=== PATIENT | female | born 1990 | race Asian ===

== ENCOUNTER 2024-12-25 07:46 | Emergency (ER) | payer SELFPAY ==
[2024-12-25 07:57] VITALS: BP 150/81; PULSE 97; RESP 14; TEMP 37.1; O2SAT 97; BMI 21.0
--- NOTE | 2024-12-25 08:32 | ED.PREGNANCY ---
HPI - General Date Seen: 12/25/24 Chief complaint: Vaginal Bleeding Stated complaint: poss miscarriage Time Seen by Provider: 12/25/24 07:59 Source: patient Mode of arrival: ambulatory Limitations: no limitations History of Present Illness HPI Narrative: Patient is a 34-year-old female who is A1 with a miscarriage being when she was 20 presenting to the emergency department for vaginal bleeding and left-sided pelvic cramping. She states she started having some bleeding yesterday and has noticed more today. She states she only notices the bleeding when she sits on the toilet. Has been using a pad but has had very minimal bleeding of the pad she states. Is also having left pelvic pain. This also started yesterday afternoon. She states for her previous miscarriage she had ultrasound at that time showing was a miscarriage in she was not having any other symptoms. Had a D&C at that time. Has not had an ultrasound yet she states that she was too early for the ultrasounds. Denies fevers, chills, chest pain, nausea, diarrhea, constipation, headache, lightheadedness, shortness of breath. No other concerns noted. Related Data Home Medications ?Medication ?Instructions ?Recorded ?Confirmed vit no.95-ferrous 1 tab PO DAILY 12/25/24 12/25/24 fumarate 28 mg-folic acid 800 mcg tablet () Allergies Allergy/AdvReac Type Severity Reaction Status Date / Time avocado AdvReac Severe Vomiting Verified 12/25/24 07:56 Review of Systems Status of ROS: Reports: 10 or more systems reviewed and unremarkable except as noted in History and below PFSH PFS Social History Smoking Status: Never smoker How often do you have a drink containing alcohol: never AUDIT-C Alcohol total score: 0 Non-prescribed substance use: denies use Exam Narrative: Exam Narrative: Const: Well-nourished, Well-developed, in mild distress Eyes: PERRL, no conjunctival injection, and symmetrical lids HENT: Atraumatic external nose and ears. Moist mucous membranes. Neck: Symmetric, trachea midline, No thyromegaly. CVS: RRR, No murmurs or gallops. Peripheral pulses 2+ and equal in all extremities RESP: Unlabored respiratory effort. Clear to auscultation bilaterally. GI: Left pelvic tenderness, Nondistended, No rebound or guarding. MSK:Extremities w/o deformity, Normal Active ROM Skin: Warm, Dry. No rashes or lesions. Neuro: Normal Muscle tone, No focal neurological deficits. Psych: Awake, Alert, & Oriented x3. Appropriate mood and affect. Const: Vital Signs, click to edit/add: Vital Signs - 24 hr 12/25/24 07:57 Temperature 98.8 F Pulse Rate [Pulse Oximeter] 97 Respiratory Rate 14 Blood Pressure [Ri ght Upper Arm] 150/81 H Pulse Oximetry 97 Oxygen Delivery Me thod Room Air Course Vital Signs Vital signs: Initial Vital Signs Temperature 98.8 F 12/25/24 07:57 Temperature Source Temporal Artery Scan 12/25/24 07:57 Pulse Rate 97 12/25/24 07:57 Respiratory Rate 14 12/25/24 07:57 Blood Pressure 150/81 H 12/25/24 07:57 Blood Pressure Mean 104 12/25/24 07:57 Blood Pressure Position Sitting 12/25/24 07:57 Pulse Oximetry 97 12/25/24 07:57 Oxygen Delivery Method Room Air 12/25/24 07:57 Vital Signs Temperature 98.8 F 12/25/24 07:57 Pulse Rate 97 12/25/24 07:57 Respiratory Rate 14 12/25/24 07:57 Blood Pressure 150/81 H 12/25/24 07:57 Pulse Oximetry 97 12/25/24 07:57 Oxygen Delivery Method Room Air 12/25/24 07:57 Temperature 98.8 F 12/25/24 07:57 Pulse Rate 97 12/25/24 07:57 Respiratory Rate 14 12/25/24 07:57 Blood Pressure 150/81 H 12/25/24 07:57 Pulse Oximetry 97 12/25/24 07:57 Oxygen Delivery Method Room Air 12/25/24 07:57 MDM - OB/Uterine Contractions MDM Narrative Medical decision making narrative: Patient is a 34-year-old female presenting to the emergency department for vaginal bleeding and left pelvic pain. My biggest concern at this time is an ectopic . Her vital signs are stable and she is not having any signs of hemodynamic instability. Will order an ultrasound along with the quantitative HCG, CBC, BMP. Other differential at this time includes UTI, diverticulitis, STD, PID, miscarriage. Beta hCG is 157. BMP and CBC showed no concerning abnormalities. Ultrasound shows likely signs of a miscarriage but we cannot definitively view the left ovary where her pain was. Due to this cannot definitively rule out ectopic . She does states she is currently pain-free after the Advil she took this morning. Her vital signs are stable. At this time I believe is most likely she is having a miscarriage but I did speak to the on-call OB, Dr. Cloud. I explained that I believe this is most likely a miscarriage but cannot definitively rule out ectopic . I believe that the patient is safe for follow-up but Friday and to the on-call Ob is agreeable with this. I informed the patient she needs to follow up Friday or return sooner if she develops worsening symptoms. She agrees with this plan. Lab Data Labs: Lab Results 12/25/24 Range/Units 08:28 WBC 10.35 (4.50-11.00) K/uL RBC 4.57 (4.00-5.20) m/uL Hgb 13.7 (12.0-16.0) gm/dL Hct 42.3 (33.0-51.0) % MCV 93 (80-100) fL MCH 30 (26-34) pg MCHC 32 (32-36) gm/dL RDW Coeff of [place] 12.7 (11.5-15.5) % Plt Count 265 (140-440) K/uL Neut % (Auto) 83.7 H (42.0-72.0) % Lymph % (Auto) 10.7 L (20-44) % [place] % (Auto) 5.3 (0.0-11.0) % Eos % (Auto) 0.1 (0.0-7.0) % Baso % (Auto) 0.1 (0.0-3.0) % Neut # (Auto) 8.70 H (1.7-7.0) K/uL Lymph # (Auto) 1.10 (0.90-2.90) K/uL [place] # (Auto) 0.50 (0.00-0.90) K/UL Eos # (Auto) 0.01 (0.00-0.50) K/uL Baso # (Auto) 0.01 (0.00-0.30) K/uL Abs Immat Gran (auto) 0.01 (0.00-0.30) K/uL Imm/Tot Granulo (auto) 0.1 % Sodium 140 (135-149) mmol/L Potassium 3.8 (3.6-5.1) mmol/L Chloride 104 (96-114) mmol/L Carbon Dioxide 24 (20-32) mmol/L Anion Gap 12 (7-15) mEq/L BUN 11 (5-24) mg/dL Creatinine 0.6 (0.5-1.5) mg/dL Estimated Creat Clear 117.76 Estimated GFR 120 ml/min Glucose 94 (60-115) mg/dL Calcium 8.9 (8.4-10.6) mg/dL HCG, Quant 157.74 mIU/mL Imaging Data Pelvic US: Attestation: I have reviewed the pertinent imaging results. Radiologist's impression: 1. No evidence of intrauterine . 2. There are blood products/clot in the lower uterine segment and cervix. The cervix appears dilated which can be confirmed with physical exam. This is suspicious for early loss in progress. 3. The right ovary appears normal. The left ovary was not well visualized due to patient discomfort during the exam. Ectopic can not be excluded. 4. Recommend clinical and imaging follow-up for confirmation. Dictated by Isamar Wu MD @ 12/25/2024 10:58:48 AM Discharge Plan Discharge Clinical Impression: Miscarriage Patient Disposition: Home, Self-Care Condition: Stable Instructions: Miscarriage (ED) Additional Instructions: I believe your symptoms are most likely from a miscarriage. At this time I cannot definitively started rule out ectopic low I would continue to do recommend return for re-evaluation if he develops worsening pain, bleeding, lightheadedness or any other concerning symptoms. I spoke to the on-call Ob/Gyne and she recommends that you follow-up on Friday with our [facility] for repeat lab work. When you call on Friday for an appointment make sure you inform them that you were told you need to follow-up on Friday for this lab work an appointment. Prescriptions: No Action PNV cmb#95-ferrous fumarate-FA [] 28 mg iron- 800 mcg tablet 1 tab PO DAILY Follow Up/Referrals: Provider,Not a Local [Primary Care Provider] - Stand Alone Forms: Billingstreetth Info Instructions
[2024-12-25 08:36] LABS: Basophils Absolute Auto 0.01 K/uL (0.00-0.30); Basophils Percent Auto 0.1 % (0.0-3.0); Eosinophils Absolute Auto 0.01 K/uL (0.00-0.50); Eosinophils Percent Auto 0.1 % (0.0-7.0); Hematocrit 42.3 % (33.0-51.0); Hemoglobin* 13.7 gm/dL (12.0-16.0); Immature Granulocytes Abs Auto 0.01 K/uL (0.00-0.30); Immature Granulocytes Pct Auto 0.1 %; Lymphocytes Percent Auto 10.7 % (20-44); Mean Corpuscular HGB Conc 32 gm/dL (32-36); Mean Corpuscular Hemoglobin 30 pg (26-34); Mean Corpuscular Volume 93 fL (80-100); Monocytes Percent Auto 5.3 % (0.0-11.0); Neutrophils Percent Auto 83.7 % (42.0-72.0); Platelet Count* 265 K/uL (140-440); RDW Coefficient of Variation % 12.7 % (11.5-15.5); Red Blood Count 4.57 m/uL (4.00-5.20); White Blood Count* 10.35 K/uL (4.50-11.00)
[2024-12-25 08:37] LABS: Slide Review Reflex No
[2024-12-25 08:49] LABS: Chloride* 104 mmol/L (96-114); Sodium* 140 mmol/L (135-149)
[2024-12-25 08:50] LABS: Potassium* 3.8 mmol/L (3.6-5.1)
[2024-12-25 08:53] LABS: Anion Gap 12 mEq/L (7-15); Blood Urea Nitrogen* 11 mg/dL (5-24); Calcium* 8.9 mg/dL (8.4-10.6); Carbon Dioxide* 24 mmol/L (20-32); Creatinine* 0.6 mg/dL (0.5-1.5); Est. Creatinine Clearance* 117.76; Estimated Glomerular Filt Rate 120 ml/min; Glucose* 94 mg/dL (60-115)
[2024-12-25 09:10] LABS: HCG Quantitative* 157.74 mIU/mL
== END 2024-12-25 11:37 | disposition home or self-care (01) ==
PROVIDERS: Emergency Provider Student in an Organized Health Care Education/Training Program
DX: O03.9 Complete or unspecified spontaneous abortion without complication (principal)
CPT/HCPCS: 36415; 76817; 80048; 84702; 85025; 99283; 99284

== ENCOUNTER 2024-12-27 13:31 | Outpatient (CLI) | payer OTHER, SELFPAY | END 2024-12-27 13:32 | disposition home or self-care (01) | PROVIDERS: Visit Provider Obstetrics & Gynecology | DX: O03.9 Complete or unspecified spontaneous abortion without complication (principal); Z67.10 Type A blood, Rh positive | CPT/HCPCS: 84702; 86850; 86900; 86901 ==